=== PATIENT | female | born 1950 | race Asian ===

== ENCOUNTER → 2016-11-26 | Outpatient (CLI) | payer OTHER | LOC: FIMAGING 10:03 | PROVIDERS: ATTEND Internal Medicine | DX: Z12.31 Encounter for screening mammogram for malignant neoplasm of breast (principal) | CPT/HCPCS: G0202 ==

== ENCOUNTER → 2017-04-29 | Outpatient (CLI) | payer OTHER | LOC: BMCIMAGING 13:39 | PROVIDERS: ATTEND Internal Medicine Rheumatology | DX: M18.0 Bilateral primary osteoarthritis of first carpometacarpal joints (principal) ==

== ENCOUNTER → 2017-06-02 | Outpatient (CLI) | payer OTHER | LOC: BMCIMAGING 09:45 | PROVIDERS: ATTEND Internal Medicine Rheumatology | DX: Z13.820 Encounter for screening for osteoporosis (principal); M85.89 Other specified disorders of bone density and structure, multiple sites ==

== ENCOUNTER 2017-07-24 14:48 | Emergency (ER) | payer OTHER ==
[2017-07-24 15:07] VITALS: RESP 16; TEMP 98.1; O2SAT 96
--- NOTE | 2017-07-24 15:24 | CPEKG ---
Heart Rate: 73 RR Interval: 822 P-R Interval: 160 QRSD Interval: 100 QT Interval: 412 QTC Interval: 454 P Buckey[place]: 63 QRS [place]: 11 T Wave [place]: 49 EKG Severity - NORMAL ECG - EKG Impression: SINUS RHYTHM Electronically Signed By: lAyssa Freeman 24-Jul-2017 21:40:23
[2017-07-24 15:29] LABS: PLATELET COUNT 187 10^3/uL (150-400)
--- NOTE | 2017-07-24 15:36 | EDPHY ---
H & P Stated Complaint: syncope Time Seen by Provider: 07/24/17 15:15 HPI/ROS: CHIEF COMPLAINT: Possible syncope HISTORY OF PRESENT ILLNESS: The patient is a 66 y/o female with a history of bipolar disorder arriving with her for evaluation of a possible near syncopal episode today about 3.5 hours ago. She has had cold symptoms for the last few days with a dry cough, nasal congestion, and subjective fever. Decreased oral intake today. Today she was at a PT appointment for rehab on her knee. While reclining as the PT was working on her knee "they saw me lay my head back." The patient does not believe she lost consciousness, but has difficulty describing the event and any preceding or subsequent symptoms. Her is not able to provide further information on the event either. She currently feels normal apart from a dry mouth and feeling slightly dehydrated. She has a history of a prior syncopal event prompting a large cardiac and neurologic work up at [place]. Those tests were all normal per patient's . No sore throat, dyspnea, chest pain, headache, abdominal pain, vomiting. REVIEW OF SYSTEMS: Constitutional: No fever, no chills Eyes: No visual changes ENT: No sore throat Respiratory: No cough, no shortness of breath Cardiac: No chest pain Gastrointestinal: No nausea, no vomiting, no abdominal pain Genitourinary: no dysuria Musculoskeletal: No leg pain or swelling Skin: No rash Neurological: No headache, no numbness, no weakness Psychiatric: No depression - Personal History Current Tetanus/Diphtheria Vaccine: Unsure Current Tetanus Diphtheria and Acellular Pertussis (TDAP): Unsure - Medical/Surgical History PMH: 1. Mitral valve prolapse - "but they said I don't have it anymore" 2. Bipolar disorder - lithium 3. Prior syncope with extensive negative cardiac and neurologic work up in 2010 at [place]. 4. Hypothyroidism Hx Asthma: No Hx Chronic Respiratory Disease: No Hx Diabetes: No Hx Cardiac Disease: No Hx Renal Disease: No Hx Cirrhosis: No Hx Alcoholism: No Hx HIV/AIDS: No Hx Splenectomy or Spleen Trauma: No Other PMH: bipolar, hypothyroid, syncope - Social History Smoking Status: Never smoked Additional Social History: Nonsmoker. at bedside. Lives in [place]. PCP: Dr. Henderson. - Physical Exam Exam: General Appearance: Alert, pleasant, nontoxic-appearing Eyes: Pupils equal and round, no conjunctival pallor or injection ENT, Mouth: Mucous membranes moist Neck: Normal inspection Respiratory: Lungs are clear to auscultation Cardiovascular: Regular rate and rhythm Gastrointestinal: Abdomen is soft and non-tender Neurological: Alert, oriented x3, cranial nerves II through XII intact, motor 5 /5, sensory intact to light touch Skin: Warm and dry, no rash Extremities: Nontender, no pedal edema Psychiatric: Mood and affect normal Constitutional: Initial Vital Signs Temperature (C) 36.7 C 07/24/17 15:03 Heart Rate 81 07/24/17 15:03 Respiratory Rate 16 07/24/17 15:03 Blood Pressure 134/77 H 07/24/17 15:03 O2 Sat (%) 96 07/24/17 15:03 O2 Delivery Mode Room Air Allergies/Adverse Reactions: No Known Allergies Allergy (Unverified 07/24/17 15:03) Home Medications: Medication Instructions Recorded [place] Aspartate 07/24/17 Oseltamivir Phosphate [Tamiflu 75 75 mg PO BID #10 cap 07/24/17 mg (RX)] Synthroid 07/24/17 Medical Decision Making ED Course/Re-evaluation: This is a 66 y/o female with a history of prior syncope and bipolar disorder who presents for evaluation after a possible near-syncopal event around 12:00 today. There was no loss of consciousness and the patient denies any associated symptoms. She currently feels at baseline apart from some dehydration, which could be contributing cause for the event she experienced today. Her exam is unremarkable. Plan for IV fluids, labs, EKG, and flu swab. The 12 lead EKG was interpreted by myself. Normal sinus rhythm, rate 73, no ST or T segment changes. See hard copy and/or "tracemaster" electronic copy for interpretation. Flu positive. Troponin normal. [place] level is normal. mechatronics technologist reveals normal sinus rhythm throughout. Reassessed patient and discussed work up. She is feeling at baseline. Exam is unchanged. Confirmed her flu symptoms actually started less than 48 hours ago, so I have prescribed Tamiflu in addition to giving standard respiratory illness care instructions and syncope follow up instructions. Walks with a steady gait , no dizziness. Return precautions discussed. She is comfortable with plan for discharge home. Differential Diagnosis: Differential diagnosis includes though is not limited to cardiac dysrhythmia, CVA, TIA, GI bleed, sepsis, hypoglycemia. - Data Points Laboratory Results: Laboratory Results 07/24/17 15:20 07/24/17 15:20 07/24/17 07/24/17 07/24/17 15:20 15:20 15:20 WBC RBC Hgb Hct MCV MCH MCHC RDW Plt Count MPV Neut % (Auto) Lymph % (Auto) [place] % (Auto) Eos % (Auto) Baso % (Auto) Nucleat RBC Rel Count Absolute Neuts (auto) Absolute Lymphs (auto) Absolute Monos (auto) Absolute Eos (auto) Absolute Basos (auto) Absolute Nucleated RBC Immature Gran % Immature Gran # Sodium 129 mEq/L L mEq/L (135-145) Potassium 4.2 mEq/L mEq/L (3.5-5.2) Chloride 93 mEq/L L mEq/L (97-110) Carbon Dioxide 27 mEq/l mEq/l (22-31) Anion Gap 9 mEq/L mEq/L (8-16) BUN 16 mg/dL mg/dL (7-23) Creatinine 1.0 mg/dL mg/dL (0.6-1.0) Estimated GFR 55 Glucose 151 mg/dL H mg/dL (70-100) Calcium 9.0 mg/dL mg/dL (8.5-10.4) Troponin I < 0.012 ng/mL ng/mL (0.000-0.034) Nasal Influenza A PCR NEGATIVE FOR FLU A (NEGATIVE) Nasal Influenza B PCR FLU B DETECTED H (NEGATIVE) [place] 0.6 mEq/L mEq/L (0.6-1.2) 07/24/17 15:20 WBC 4.72 10^3/uL 10^3/uL (3.80-9.50) RBC 4.70 10^6/uL 10^6/uL (4.18-5.33) Hgb 14.4 g/dL g/dL (12.6-16.3) Hct 41.8 % % (38.0-47.0) MCV 88.9 fL fL (81.5-99.8) MCH 30.6 pg pg (27.9-34.1) MCHC 34.4 g/dL g/dL (32.4-36.7) RDW 13.4 % % (11.5-15.2) Plt Count 187 10^3/uL 10^3/uL (150-400) MPV 9.5 fL fL (8.7-11.7) Neut % (Auto) 73.1 % % (39.3-74.2) Lymph % (Auto) 19.5 % % (15.0-45.0) [place] % (Auto) 6.4 % % (4.5-13.0) Eos % (Auto) 0.2 % L % (0.6-7.6) Baso % (Auto) 0.6 % % (0.3-1.7) Nucleat RBC Rel Count 0.0 % % (0.0-0.2) Absolute Neuts (auto) 3.45 10^3/uL 10^3/uL (1.70-6.50) Absolute Lymphs (auto) 0.92 10^3/uL L 10^3/uL (1.00-3.00) Absolute Monos (auto) 0.30 10^3/uL 10^3/uL (0.30-0.80) Absolute Eos (auto) 0.01 10^3/uL L 10^3/uL (0.03-0.40) Absolute Basos (auto) 0.03 10^3/uL 10^3/uL (0.02-0.10) Absolute Nucleated RBC 0.00 10^3/uL 10^3/uL (0-0.01) Immature Gran % 0.2 % % (0.0-1.1) Immature Gran # 0.01 10^3/uL 10^3/uL (0.00-0.10) Sodium Potassium Chloride Carbon Dioxide Anion Gap BUN Creatinine Estimated GFR Glucose Calcium Troponin I Nasal Influenza A PCR Nasal Influenza B PCR [place] Departure - Departure Disposition: Home, Routine, Self-Care Clinical Impression: Flu Syncope Qualifiers: Syncope type: vasovagal syncope Qualified Code(s): R55 - Syncope and collapse Condition: Good Instructions: Oseltamivir (By mouth), Syncope (ED), Influenza (ED) Additional Instructions: 1. Drink plenty of fluids. 2. Use Tylenol or ibuprofen as directed if needed for pain or fever over the next few days. 3. Take Tamiflu as directed. This will not cure the flu but can shorten the length of your illness. 4. Practice good hand hygiene and cover your cough while symptomatic to prevent spread of illness to others. 5. Follow up with your primary care provider for unimproved symptoms over the next week. 6. Return for recurrent symptoms or any concerns. Referrals: Kiki Henderson MD [Primary Care Provider] - As per Instructions Prescriptions: Oseltamivir Phosphate [Tamiflu 75 mg (RX)] 75 mg PO BID #10 cap Report Scribed for: Alyssa Freeman Report Scribed by: Arti Leslie Date of Report: 07/24/17 Time of Report: 15:37 Physician Review and Approval Statement: 07/24/17 15:37 Portions of this note were transcribed by a medical technologist prn. I personally performed a history, physical exam, medical decision making, and confirmed accuracy of information the transcribed note.
[2017-07-24 17:28] VITALS: BP 116/61; PULSE 74
== END 2017-07-24 17:28 | disposition home or self-care (01) ==
DX: J10.1 Influenza due to other identified influenza virus with other respiratory manifestations (principal); R55 Syncope and collapse

== ENCOUNTER → 2017-07-31 | Outpatient (CLI) | payer OTHER | LOC: BMCIMAGING 13:53 | PROVIDERS: ATTEND Internal Medicine | DX: J98.4 Other disorders of lung (principal) ==